=== PATIENT | male | born 1960 | race Caucasian/White ===

== ENCOUNTER 2021-04-11 12:10 | Emergency (ER) | payer BC, SELFPAY ==
--- NOTE | ~2021-04-11 | XR_ITS ---
EXAMINATION: XR chest 2V EXAM DATE: 04/11/2021 12:46 INDICATION: Right-sided chest pain and pressure onset yesterday morning. TECHNIQUE: Frontal and lateral projections of the chest obtained and reviewed. There is no prior simon dy for comparison. FINDINGS: The lungs are clear. There are no pleural effusions. The cardiomediastinal silhouette is within normal limits. There is no pneumothorax suspected. The bones and soft tissues are unremarkab le. IMPRESSION: No acute cardiopulmonary findings. Reviewed, dictated and finalized at location A.
--- NOTE | 2021-04-11 12:17 | ED.CHESTPAIN ---
HPI - Chest Pain General Chief Complaint: Chest Pain Stated Complaint: chest pain Time Seen by Provider: 04/11/21 12:25 Source: patient and RN notes reviewed Mode of arrival: ambulatory Limitations: no limitations History of Present Illness HPI narrative: 60-year-old male presents with concern for chest pain that started yesterday. Reports he had right-sided chest pain yesterday after exercising. Reports today while golfing the chest pain started moving across his chest . He also reports feeling mild pain in his right upper back. He reports he has been coughing for the last several days which he relates to a cold. Reports he has been vaccinated for Covid more than a month ago. Reports a history of high blood pressure for which he does not medicate. Reports family history of heart attacks, 2 younger brothers that have had heart attacks. He denies any relieving factors, reports pain worsened while he was swinging his golf club. He denies shortness of breath, diaphoresis. Reports he felt slightly dizzy while playing golf this morning. He denies syncope or near syncope. He denies any known injury or trauma. MD complaint: chest pain Related Data Home Medications Medication Instructions Recorded Confirmed sildenafil [Viagra] 50 mg PO DAILY PRN 04/11/21 04/11/21 Allergies Allergy/AdvReac Type Severity Reaction Status Date / Time No Known Allergies Allergy Unverified 04/11/21 12:18 Review of Systems Review of Systems: Narrative: CONSTITUTIONAL: Denies malaise, chills, sweats, or fever. EYES: Denies visual changes ENT: Denies rhinorrhea, congestion, sinus pain, otalgia or sore throat. CARDIOVASCULAR: Reports right chest pain that radiates to the sternum. Denies palpitations or edema. RESPIRATORY: Reports cough for 3 to 4 days. Denies dyspnea. GASTROINTESTINAL: Denies abdominal pain, nausea, vomiting, diarrhea SKIN: Denies rash, lacerations, abrasions, bruising MUSCULOSKELETAL: Reports right upper back pain. Denies myalgia. NEUROLOGIC: Denies numbness, weakness, or headache. All systems reviewed & are unremarkable except as noted in HPI and below PMFSH Comments At time of signature, agree with nursing past medical, surgical, social and family history. There is no relevant family history pertinent to the presenting complaint Exam Narrative: Exam Narrative: GENERAL: Well-appearing, well-nourished, and in no acute distress. HEAD: Normocephalic, atraumatic. EYES: PERRLA, conjunctivae clear ENT: Mucous membranes moist. NECK: Supple. No lymphadenopathy. No jugular venous distension, thyromegaly, or carotid bruits. Carotids were easily palpable bilaterally. CHEST: No respiratory distress. Clear to auscultation. No bony deformities, no asymmetry. Speaks in full sentences. HEART: Regular rate and rhythm. No murmur heard. Normal peripheral pulses. ABDOMEN: Obese, nontender, normal active bowel sounds, no palpable masses. EXTREMITIES: Grossly normal range of motion, no edema, grossly normal strength and sensation. SKIN: Warm, dry, no rash. NEURO: Alert and oriented x3. No focal deficits. PSYCH: Normal mood and affect Course Course Emergency Course: Discussed with patient limited diagnostic capability at the [facility] for chest pain. Discussed with patient possibility of transfer to the emergency department. Patient does not choose to transfer to the emergency department at this time. Patient is aware of diagnosis, understands and agrees to treatment plan. Anticipatory guidance given. Patient agrees to follow-up as directed and is aware of reasons to seek care at the emergency department. Portions of this record may have been created with voice recognition software Vital Signs Vital signs: Vital Signs Temperature 98.0 F 04/11/21 12:18 Pulse Rate 75 04/11/21 12:18 Respiratory Rate 16 04/11/21 12:18 Blood Pressure 170/83 H 04/11/21 12:18 Pulse Oximetry 97 04/11/21 12:18 Temperature 98.0 F
[2021-04-11 12:18] VITALS: BP 170/83; PULSE 75; RESP 16; TEMP 36.7; O2SAT 97
--- NOTE | 2021-04-11 12:54 | ECG_ITS ---
Measurements Intervals [place] Rate: 70 P: 50 VT: 155 QRS: 39 QRSD: 84 T: 13 QT: 373 QTc: 404 Interpretive Statements SINUS RHYTHM LOW QRS VOLTAGE IN PRECORDIAL LEADS BORDERLINE ECG Electronically Signed On 04-11-2021 16:17:02 CDT by Aris Booth D.O.
== END 2021-04-11 13:05 | disposition home or self-care (01) ==
PROVIDERS: Emergency Provider Nurse Practitioner; PCP Internal Medicine
DX: R07.9 Chest pain, unspecified (principal); G47.30 Sleep apnea, unspecified
CPT/HCPCS: 71046; 93005; 99203; G0463